=== PATIENT | female | born 1970 | race Caucasian/White ===

== ENCOUNTER 2018-06-21 21:05 | Emergency (ER) | payer OTHER ==
[~2018-06-21] VITALS: Ht 170.2 cm; Wt 90.7 kg
[~2018-06-21 21:05] MED LIST: CELEXA40 MG PO; GABAPENTIN300 MG PO; LISINOPRIL-HCT1 EACH PO; METOPROLOL SUCC50 MG PO; NORCO 10-325 T1 EACH PO; NORCO 5-325 TA1 EACH PO; ORTHO TRI-CYCL1 EAC1 PO; SIMVASTATIN20 MG PO; VISTARIL50 MG PO
[2018-06-21] MEDS ORDERED: AMBIEN10 MG PO (21:21)
[2018-06-21] MEDS ORDERED: SUBOXONE 8 MG-1 EAC1 SL (21:21)
[2018-06-21] MEDS ORDERED: LAMICTAL150 MG PO (21:21)
== END 2018-06-21 22:15 | disposition home or self-care (01) ==
LOC: ED 21:05
DX: S31.41XA Laceration without foreign body of vagina and vulva, initial encounter (principal); W01.198A Fall on same level from slipping, tripping and stumbling with subsequent striking against other object, initial encounter; I10 Essential (primary) hypertension; E78.5 Hyperlipidemia, unspecified; F32.9 Major depressive disorder, single episode, unspecified; F17.200 Nicotine dependence, unspecified, uncomplicated; Z88.5 Allergy status to narcotic agent; Z79.899 Other long term (current) drug therapy
CPT/HCPCS: 72170; 99283-25

== ENCOUNTER 2021-09-26 15:54 | Emergency (ER) | payer OTHER ==
[~2021-09-26] VITALS: Ht 170.2 cm; Wt 101.2 kg
[~2021-09-26 15:54] MED LIST changes: +AMBIEN10 MG PO; +LAMICTAL150 MG PO; +SUBOXONE 8 MG-1 EAC1 SL
--- OUTSIDE RECORDS SUMMARY | 2021-09-26 15:58 | XMS ---
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 Emily VISIT COUNT (12 MO.) 1 GEMMA Connolly TOTAL 1 NOTE: Visits indicate total known visits. ED/UCC VISIT TRACKING (12 MO.) 09/26/2021 15:56 GEMMA Blas OR TYPE: Emergency COMPLAINT: - LT ARM INJURY INPATIENT VISIT TRACKING (12 MO.) No inpatient visits to display in this time frame [email or web address]
[2021-09-26] MEDS ORDERED: ATORVASTATIN CA40 MG PO (16:34)
== END 2021-09-26 18:09 | disposition home or self-care (01) ==
LOC: ED 15:54
DX: S52.125A Nondisplaced fracture of head of left radius, initial encounter for closed fracture (principal); S52.135A Nondisplaced fracture of neck of left radius, initial encounter for closed fracture; W01.10XA Fall on same level from slipping, tripping and stumbling with subsequent striking against unspecified object, initial encounter; I10 Essential (primary) hypertension; E78.5 Hyperlipidemia, unspecified; F17.200 Nicotine dependence, unspecified, uncomplicated; Z88.5 Allergy status to narcotic agent; Z79.899 Other long term (current) drug therapy
CPT/HCPCS: 73060; 73080; 99283-25; A9270